=== PATIENT | female | born 1970 | race Caucasian/White ===

== ENCOUNTER 2021-09-07 07:07 | Emergency (ER) | payer MEDICAID ==
[~2021-09-07] VITALS: Ht 162.6 cm; Wt 54.5 kg
[2021-09-07 07:13] VITALS: BP 166/86
--- NOTE | 2021-09-07 07:23 | NUR ---
RONEY HERE TO INTERVIEW PATIENT. REPORT NUMBER IS: [id number]
--- NOTE | 2021-09-07 07:46 | NUR ---
PATIENT WASHED SELF OFF AND CLEAN CLOTHES GIVEN TO PATIENT. SOILED CLOTHING PLACED IN PLASTIC BAG.
--- NOTE | 2021-09-07 08:17 | NUR ---
PATIENT IS NOT CHANGING HER CLOTHES AND COMPLAINING OF FACE BURNING. PATIENT ENCOURAGED TO CHANGE CLOTHES AND COMPLETE WASHING UP BECAUSE THERE IS NOT ANY OTHER INTERVENTIONS THAT ARE INDICATED AT THIS TIME. PATIENT IS MALINGERING ON THE GURNEY.
== END 2021-09-07 08:45 | disposition home or self-care (01) ==
LOC: ER 07:08
DX: T65.94XA Toxic effect of unspecified substance, undetermined, initial encounter (principal); Z77.098 Contact with and (suspected) exposure to other hazardous, chiefly nonmedicinal, chemicals; M79.601 Pain in right arm; Y92.89 Other specified places as the place of occurrence of the external cause
CPT/HCPCS: 99283